=== PATIENT | female | born 1985 | race Caucasian/White ===

== ENCOUNTER 2019-01-10 18:10 | Outpatient (CLI) | payer SELFPAY | END 2019-01-10 18:11 | disposition EMS.NT | LOC: EMS 18:10 | PROVIDERS: ATTEND Surgery | DX: S67.22XA Crushing injury of left hand, initial encounter (principal); W23.1XXA Caught, crushed, jammed, or pinched between stationary objects, initial encounter; Y93.89 Activity, other specified; Y92.009 Unspecified place in unspecified non-institutional (private) residence as the place of occurrence of the external cause ==